=== PATIENT | male | born 1975 | race Caucasian/White ===

== ENCOUNTER → 2023-04-22 16:17 | Outpatient (BNVA) | payer BC, SELFPAY | PROVIDERS: PCP Nurse Practitioner Family; Visit Provider Nurse Practitioner Family | DX: E03.9 Hypothyroidism, unspecified (principal); F41.9 Anxiety disorder, unspecified; R00.2 Palpitations | CPT/HCPCS: 80061; 83721; 84439; 84443; 84481; 85025 ==

== ENCOUNTER → 2023-05-23 08:25 | Outpatient (BNVA) | payer BC, SELFPAY | PROVIDERS: PCP Nurse Practitioner Family; Visit Provider Nurse Practitioner Family | DX: E78.5 Hyperlipidemia, unspecified (principal) | CPT/HCPCS: 80061 ==

== ENCOUNTER → 2023-06-11 15:49 | Outpatient (BNVA) | payer BC, SELFPAY | PROVIDERS: PCP Nurse Practitioner Family; Visit Provider Nurse Practitioner Family | DX: E03.9 Hypothyroidism, unspecified (principal); E78.1 Pure hyperglyceridemia; E04.1 Nontoxic single thyroid nodule | CPT/HCPCS: 80061; 83721; 84443 ==

== ENCOUNTER → 2023-09-02 15:19 | Outpatient (BNVA) | payer BC, SELFPAY | PROVIDERS: PCP Nurse Practitioner Family; Visit Provider Nurse Practitioner Family | DX: R07.9 Chest pain, unspecified (principal) | CPT/HCPCS: 93005 ==

== ENCOUNTER → 2023-09-06 08:11 | Outpatient (BNVA) | payer BC, SELFPAY | PROVIDERS: PCP Nurse Practitioner Family; Visit Provider Nurse Practitioner Family | DX: E78.1 Pure hyperglyceridemia (principal) | CPT/HCPCS: 80061 ==

== ENCOUNTER → 2024-10-13 11:15 | Outpatient (BNVA) | payer BC, SELFPAY | PROVIDERS: PCP Nurse Practitioner Family; Visit Provider Nurse Practitioner Family | DX: I10 Essential (primary) hypertension (principal); E04.1 Nontoxic single thyroid nodule; E78.1 Pure hyperglyceridemia | CPT/HCPCS: 80053; 80061; 84443 ==